=== PATIENT | female | born 1995 | race American Indian/Alaskan Native ===

== ENCOUNTER 2020-12-16 18:01 | Emergency (ER) | payer OTHER ==
[2020-12-16] MEDS ORDERED: SODIUM CHLORIDE 0.9% 1000 ML 1,000 ML IV ONE ×2 (19:11→20:52)
[2020-12-16 19:28] LABS: Basophils % (Auto) 0.6 % (0.0-1.8); Eosinophils # (Auto) 0.2 K/mm3 (0.0-0.4); Hematocrit 40.4 % (30.3-42.9); Hemoglobin 13.5 gm/dl (10.1-14.3); Lymphocytes # (Auto) 3.2 K/mm3 (1.2-5.4); Lymphocytes % (Auto) 42.6 % (13.4-35.0); Mean Corpuscular HGB Conc 34 % (30-34); Mean Corpuscular Volume 91 fl (79-97); Monocytes # (Auto) 0.6 K/mm3 (0.0-0.8); Monocytes % (Auto) 7.8 % (0.0-7.3); Platelet Count 241 K/mm3 (140-440); Red Blood Count 4.43 M/mm3 (3.65-5.03); Red Cell Distribution Width 13.6 % (13.2-15.2)
[2020-12-16 19:46] LABS: Alanine Aminotransferase 7 units/L (7-56); Albumin 4.3 g/dL (3.9-5); BUN/Creatinine Ratio 10; Blood Urea Nitrogen 10 mg/dL (7-17); Calcium 9.3 mg/dL (8.4-10.2); Hemolysis Index 25
[2020-12-16 19:57] LABS: Bilirubin,Urine NEG (Negative); Blood,Urine MOD (Negative); Color,Urine Straw (Yellow); Mucus,Urine FEW /HPF; Protein,Urine <15 mg/dL mg/dL (Negative); Urobilinogen,Urine < 2.0 mg/dL (<2.0); WBC,Urine < 1.0 /HPF (0.0-6.0)
[2020-12-16] MEDS ORDERED: diphenhydrAMINE 50 MG/ML VIAL IV ONE (20:52)
[2020-12-16] MEDS ORDERED: ONDANSETRON 4 MG/2 ML INJ IV ONE (20:52)
[2020-12-16] MEDS ORDERED: KETOROLAC 30 MG/1 ML INJ IV ONE (21:16)
--- NOTE | 2020-12-16 21:49 | Emergency Department Report ---
ED General Adult HPI - General Chief complaint: Abdominal Pain Stated complaint: STOMACH/HEAD PROBLEM Time Seen by Provider: 12/16/20 20:16 Source: patient Mode of arrival: Ambulatory Limitations: No Limitations - History of Present Illness Initial comments: Patient presents to the emergency department the chief complaint of lightheadedness, nausea, vomiting that started on Sunday. The patient states she was a significant nicotine user stating that she vapes back to back all day long and decided to stop cold turkey on Sunday. Since that time she states she has had some lightheadedness, nausea, vomiting and tingling of her lips. Patient denies chest pain, shortness breath, or abdominal pain. -: Sudden Severity scale (0 -10): 0 Consistency: constant Improves with: none Worsens with: none Associated Symptoms: denies other symptoms Treatments Prior to Arrival: none - Related Data Previous Rx's Medication Instructions Recorded Last Taken Type Promethazine [Phenergan TAB] 25 mg PO Q6HR PRN #20 tab 12/16/20 Unknown Rx Allergies Allergy/AdvReac Type Severity Reaction Status Date / Time No Known Allergies Allergy Unverified 12/16/20 18:07 ED Review of Systems ROS: Stated complaint: STOMACH/HEAD PROBLEM Other details as noted in HPI Comment: All other systems reviewed and negative Constitutional: denies: chills, fever Eyes: denies: eye pain, eye discharge, vision change ENT: denies: ear pain, throat pain Respiratory: denies: cough, shortness of breath, wheezing Cardiovascular: denies: chest pain, palpitations Endocrine: no symptoms reported Gastrointestinal: denies: abdominal pain, nausea, diarrhea Genitourinary: denies: urgency, dysuria, discharge Musculoskeletal: denies: back pain, joint swelling, arthralgia Skin: denies: rash, lesions Neurological: denies: headache, weakness, paresthesias Psychiatric: denies: anxiety, depression Hematological/Lymphatic: denies: easy bleeding, easy bruising ED Past Medical Hx - Past Medical History Additional medical history: GASTRITIS - Surgical History Past Surgical History?: No - Social History Smoking Status: Unknown if ever smoked Substance Use Type: None - Medications Home Medications: Home Medications Medication Instructions Recorded Confirmed Last Taken Type Promethazine [Phenergan TAB] 25 mg PO Q6HR PRN #20 tab 12/16/20 Unknown Rx ED Physical Exam - General Limitations: No Limitations General appearance: alert, in no apparent distress - Head Head exam: Present: atraumatic, normocephalic - Eye Eye exam: Present: normal appearance - ENT ENT exam: Present: mucous membranes dry - Neck Neck exam: Present: normal inspection - Respiratory Respiratory exam: Present: normal lung sounds bilaterally. Absent: respiratory distress - Cardiovascular Cardiovascular Exam: Present: regular rate, normal rhythm. Absent: systolic murmur, diastolic murmur, rubs, gallop - GI/Abdominal GI/Abdominal exam: Present: soft, normal bowel sounds - Extremities Exam Extremities exam: Present: normal inspection - Back Exam Back exam: Present: normal inspection - Neurological Exam Neurological exam: Present: alert, oriented X3, CN II-XII intact. Absent: motor sensory deficit - Psychiatric Psychiatric exam: Present: normal affect, normal mood - Skin Skin exam: Present: warm, dry, intact, normal color. Absent: rash ED Course Vital Signs 12/16/20 18:08 Temperature 98.4 F Pulse Rate 72 Respiratory 16 Rate Blood Pressure 135/94 O2 Sat by Pulse 100 Oximetry ED Medical Decision Making - Lab Data Result diagrams: 12/16/20 19:16 12/16/20 19:16 Lab Results 12/16/20 12/16/20 12/16/20 Range/Units 19:16 19:16 19:16 WBC 7.6 (4.5-11.0) K/mm3 RBC 4.43 (3.65-5.03) M/mm3 Hgb 13.5 (10.1-14.3) gm/dl Hct 40.4 (30.3-42.9) % MCV 91 (79-97) fl MCH 31 (28-32) pg MCHC 34 (30-34) % RDW 13.6 (13.2-15.2) % Plt Count 241 (140-440) K/mm3 Lymph % (Auto) 42.6 H (13.4-35.0) % [place] % (Auto) 7.8 H (0.0-7.3) % Eos % (Auto) 3.0 (0.0-4.3) % Baso % (Auto) 0.6 (0.0-1.8) % Lymph # (Auto) 3.2 (1.2-5.4) K/mm3 [place] # (Auto) 0.6 (0.0-0.8) K/mm3 Eos # (Auto) 0.2 (0.0-0.4) K/mm3 Baso # (Auto) 0.0 (0.0-0.1) K/mm3 Seg Neutrophils % 46.0 (40.0-70.0) % Seg Neutrophils # 3.5 (1.8-7.7) K/mm3 Sodium 145 (137-145) mmol/L Potassium 4.2 (3.6-5.0) mmol/L Chloride 108.6 H (98-107) mmol/L Carbon Dioxide 26 (22-30) mmol/L Anion Gap 15 mmol/L BUN 10 (7-17) mg/dL Creatinine 1.0 (0.6-1.2) mg/dL Estimated GFR > 60 ml/min BUN/Creatinine Ratio 10 % Glucose 76 (65-100) mg/dL Calcium 9.3 (8.4-10.2) mg/dL Total Bilirubin 0.20 (0.1-1.2) mg/dL AST 15 (5-40) units/L ALT 7 (7-56) units/L Alkaline Phosphatase 78 (35-129) units/L Total Protein 6.7 (6.3-8.2) g/dL Albumin 4.3 (3.9-5) g/dL Albumin/Globulin Ratio 1.8 % HCG, Qual Negative (Negative) Urine Color (Yellow) Urine Turbidity (Clear) Urine pH (5.0-7.0) Ur Specific [place] (1.003-1.030) Urine Protein (Negative) mg/dL Urine Glucose (UA) (Negative) mg/dL Urine Ketones (Negative) mg/dL Urine Blood (Negative) Urine Nitrite (Negative) Urine Bilirubin (Negative) Urine Urobilinogen (<2.0) mg/dL Ur Leukocyte Esterase (Negative) Urine WBC (Auto) (0.0-6.0) /HPF Urine RBC (Auto) (0.0-6.0) /HPF U Epithel Cells (Auto) (0-13.0) /HPF Urine Mucus /HPF 12/16/20 Range/Units Unknown WBC (4.5-11.0) K/mm3 RBC (3.65-5.03) M/mm3 Hgb (10.1-14.3) gm/dl Hct (30.3-42.9) % MCV (79-97) fl MCH (28-32) pg MCHC (30-34) % RDW (13.2-15.2) % Plt Count (140-440) K/mm3 Lymph % (Auto) (13.4-35.0) % [place] % (Auto) (0.0-7.3) % Eos % (Auto) (0.0-4.3) % Baso % (Auto) (0.0-1.8) % Lymph # (Auto) (1.2-5.4) K/mm3 [place] # (Auto) (0.0-0.8) K/mm3 Eos # (Auto) (0.0-0.4) K/mm3 Baso # (Auto) (0.0-0.1) K/mm3 Seg Neutrophils % (40.0-70.0) % Seg Neutrophils # (1.8-7.7) K/mm3 Sodium (137-145) mmol/L Potassium (3.6-5.0) mmol/L Chloride (98-107) mmol/L Carbon Dioxide (22-30) mmol/L Anion Gap mmol/L BUN (7-17) mg/dL Creatinine (0.6-1.2) mg/dL Estimated GFR ml/min BUN/Creatinine Ratio % Glucose (65-100) mg/dL Calcium (8.4-10.2) mg/dL Total Bilirubin (0.1-1.2) mg/dL AST (5-40) units/L ALT (7-56) units/L Alkaline Phosphatase (35-129) units/L Total Protein (6.3-8.2) g/dL Albumin (3.9-5) g/dL Albumin/Globulin Ratio % HCG, Qual (Negative) Urine Color Straw (Yellow) Urine Turbidity Clear (Clear) Urine pH 6.0 (5.0-7.0) Ur Specific [place] 1.010 (1.003-1.030) Urine Protein <15 mg/dl (Negative) mg/dL Urine Glucose (UA) Neg (Negative) mg/dL Urine Ketones Neg (Negative) mg/dL Urine Blood Mod (Negative) Urine Nitrite Neg (Negative) Urine Bilirubin Neg (Negative) Urine Urobilinogen < 2.0 (<2.0) mg/dL Ur Leukocyte Esterase Neg (Negative) Urine WBC (Auto) < 1.0 (0.0-6.0) /HPF Urine RBC (Auto) 1.0 (0.0-6.0) /HPF U Epithel Cells (Auto) 3.0 (0-13.0) /HPF Urine Mucus Few /HPF - Medical Decision Making Patient given IV fluids, Benadryl, Zofran. Critical care attestation.: If time is entered above; I have spent that time in minutes in the direct care of this critically ill patient, excluding procedure time. ED Disposition Clinical Impression: Nicotine withdrawal, Light-headedness, Nausea & vomiting Disposition: TO HOME OR SELFCARE Is pt being admited?: No Does the pt Need Aspirin: No Condition: Stable Instructions: Abdominal Pain (ED), Nausea, Adult, Nausea and Vomiting, Adult, Dizziness, [id number], Coping with Quitting Smoking Additional Instructions: Return if worse Referrals: PRIMARY CAREMD [Primary Care Provider] - 3-5 Days SUKHJINDER MIKE MD [Staff Physician] - 3-5 Days Time of Disposition: 21:48
[2020-12-16 22:05] VITALS: BP 128/88
== END 2020-12-16 22:05 | disposition home or self-care (01) ==
LOC: ED 18:01
DX: F17.203 Nicotine dependence unspecified, with withdrawal (principal); R42 Dizziness and giddiness; R11.2 Nausea with vomiting, unspecified; Z79.899 Other long term (current) drug therapy
CPT/HCPCS: 36415; 80053; 81001; 84703; 85025; 96361; 96374; 96375; 99283; J1200; J1885; J2405; J7030

== ENCOUNTER 2022-04-04 14:28 | Emergency (ER) | payer OTHER ==
[2022-04-04 14:51] VITALS: BP 123/78
--- NOTE | 2022-04-04 15:45 | Emergency Department Report ---
ED Recheck HPI - General Chief Complaint: Medical Clearance Stated Complaint: ABNORMAL EKG REFERRAL Time Seen by Provider: 04/04/22 15:41 Source: patient Mode of arrival: Ambulatory Limitations: No Limitations - History of Present Illness Initial Comments: Patient is new to the area and presented to an urgent care looking for referral for cardiology. She has a history of a small PFO what sounds like with mitral valve prolapse. She went to the urgent care they did an EKG that was abnormal and sent her to the emergency room. She has no chest pain or other symptoms she is strictly looking for referral. - Related Data Previous Rx's Medication Instructions Recorded Last Taken Type Promethazine [Phenergan TAB] 25 mg PO Q6HR PRN #20 tab 12/16/20 Unknown Rx Allergies Allergy/AdvReac Type Severity Reaction Status Date / Time No Known Allergies Allergy Unverified 12/16/20 18:07 ED Review of Systems ROS: Stated complaint: ABNORMAL EKG REFERRAL Other details as noted in HPI Comment: All other systems reviewed and negative ED Past Medical Hx - Past Medical History Previous Medical History?: Yes Additional medical history: GASTRITIS, mitral valve prolapse - Surgical History Past Surgical History?: No - Family History Family history: no significant - Social History Smoking Status: Never Smoker Substance Use Type: None - Medications Home Medications: Home Medications Medication Instructions Recorded Confirmed Last Taken Type Promethazine [Phenergan TAB] 25 mg PO Q6HR PRN #20 tab 12/16/20 Unknown Rx ED Physical Exam - General Limitations: No Limitations General appearance: alert, in no apparent distress - Head Head exam: Present: atraumatic, normocephalic - Eye Eye exam: Present: normal appearance - ENT ENT exam: Present: mucous membranes moist - Neck Neck exam: Present: normal inspection - Respiratory Respiratory exam: Present: normal lung sounds bilaterally. Absent: respiratory distress - Cardiovascular Cardiovascular Exam: Present: regular rate, normal rhythm. Absent: systolic murmur, diastolic murmur, rubs, gallop - GI/Abdominal GI/Abdominal exam: Present: soft, normal bowel sounds - Extremities Exam Extremities exam: Present: normal inspection - Back Exam Back exam: Present: normal inspection - Neurological Exam Neurological exam: Present: alert, oriented X3 - Psychiatric Psychiatric exam: Present: normal affect, normal mood - Skin Skin exam: Present: warm, dry, intact, normal color. Absent: rash ED Course Vital Signs 04/04/22 04/04/22 14:42 16:03 Temperature 98.9 F Pulse Rate 89 Respiratory 12 Rate Blood Pressure 123/78 O2 Sat by Pulse 98 100 Oximetry ED Recheck MDM - Core Measures Measure Exclusions: not indicated - Medical Decision Making Patient is sent from the urgent care for abnormal EKG. She has no acute ST segment elevation or depression. No STEMI. No chest pain. No shortness of breath. No fever or chills. She is ambulatory, nontoxic and [id number]. Patient has a history of mitral valve prolapse and was looking for a recommendation for referral when she presented to the ER. When they heard her history they did a twelve-lead thought that it was abnormal and sent her to the ER for cardiac evaluation. I explained to the patient that we do not do cardiac work-ups. That she has no life-threatening illness or injury that she just needs to follow-up with cardiology. Given that she is new to the area of given a referral to cardiology. Patient being discharged home with discharge plan of care including diet, activity, medications and follow-up. She verbalizes understanding of plan of care Vital Signs 04/04/22 04/04/22 14:42 16:03 Temperature 98.9 F Pulse Rate 89 Respiratory 12 Rate Blood Pressure 123/78 O2 Sat by Pulse 98 100 Oximetry Critical care attestation.: If time is entered above; I have spent that time in minutes in the direct care of this critically ill patient, excluding procedure time. ED Disposition Clinical Impression: ASD (atrial septal defect), Hx of mitral valve prolapse Disposition: 01 HOME / SELF CARE / HOMELESS Is pt being admited?: No Does the pt Need Aspirin: No Condition: Stable Additional Instructions: FOLLOW UP WITH CARDIOLOGY AND OR PCP WE DISCUSSED REFERRALS BELOW Referrals: SUKHJINDER MIKE MD [Primary Care Provider] - 3-5 Days WAYNE JESUS MD [Staff Physician] - 3-5 Days Time of Disposition: 15:44
--- NOTE | 2022-04-05 09:06 | Electrocardiograph Report ---
[facility] Test Date: 2022-04-04 Test Time: 14:55:10 Pat Name: MISA DEL RIO Department: Room: Gender: F Chief Client Officer: JOHNATHAN : 1995 Requested By: BALDEV BURKETT Order Number: [id number] Reading MD: Alfonzo Krishnan Measurements Intervals [place] Rate: 87 P: 0 OR: 137 QRS: 81 QRSD: 88 T: 50 QT: 365 QTc: 439 Interpretive Statements Sinus rhythm Probable left atrial enlargement No previous ECG available for comparison Electronically Signed On 04-05-2022 9:05:55 EDT by Alfonzo Krishnan
== END 2022-04-04 16:20 | disposition home or self-care (01) ==
LOC: ED 14:28
DX: Q21.1 Atrial septal defect (principal); I34.1 Nonrheumatic mitral (valve) prolapse
CPT/HCPCS: 93005; 99282; 99283